=== PATIENT | male | born 1930 ===

== ENCOUNTER 2018-10-03 08:40 | Day surgery (SDC) | payer MEDICARE, BC ==
[~2018-10-03] VITALS: Ht 177.8 cm; Wt 97.1 kg
[~2018-10-03 08:40] MED LIST: ASPI325; Central-Vite1 EAC3; FISH1000; LISI20; LISI5 PO; Omeprazole20 M1; SPIR25
[2018-10-03] MEDS ORDERED: FISH OIL + D31 EACH (09:41)
[2018-10-03] MEDS ORDERED: LO-DOSE ASPIRIN81 MG (09:41)
== END 2018-10-03 11:08 | disposition home or self-care (01) ==
LOC: ORSCSDS 08:40
PROVIDERS: Surgery
PROC: 0DB58ZX Excision of Esophagus, Via Natural or Artificial Opening Endoscopic, Diagnostic (ICD-10-PCS; principal; 2018-10-03 10:15)
DX: K22.70 Barrett's esophagus without dysplasia (principal); I10 Essential (primary) hypertension; E78.5 Hyperlipidemia, unspecified; Z87.11 Personal history of peptic ulcer disease; Z79.82 Long term (current) use of aspirin; Z79.899 Other long term (current) drug therapy
CPT/HCPCS: 88305; J2704; J7120

== ENCOUNTER → 2019-08-10 | Outpatient (CLI) | payer MEDICARE, BC ==
[~2019-08-10] MED LIST changes: +FISH OIL + D31 EACH; +LO-DOSE ASPIRIN81 MG
== END | disposition home or self-care (01) ==
LOC: LAB SHORT 14:38 → PLD 14:38
DX: L08.89 Other specified local infections of the skin and subcutaneous tissue (principal)
CPT/HCPCS: 88305; 88312